=== PATIENT | female | born 1980 | race African-American/Black ===

== ENCOUNTER → 2018-06-28 | Day surgery (SDC) | payer OTHER ==
[~2018-06-28] MED LIST: PULMICORT FLE180 MCG IH; VENTOLIN HFA18 GM IH; VERAPAMIL ER180 MG PO
== END | disposition home or self-care (01) ==
LOC: ADM 06-23 15:15 → CIR.AMB 06:29
DX: M19.031 Primary osteoarthritis, right wrist (principal)

== ENCOUNTER 2020-02-06 07:20 | Outpatient (CLI) | payer OTHER | END 2020-02-06 07:29 | disposition home or self-care (01) | LOC: LAB 07:20 | PROVIDERS: ATTEND Internal Medicine Hematology & Oncology | DX: D68.8 Other specified coagulation defects (principal); D69.49 Other primary thrombocytopenia ==